=== PATIENT | male | born 1960 | race Caucasian/White ===

== ENCOUNTER 2019-06-25 15:25 | Emergency (ER) | payer SELFPAY ==
[~2019-06-25] VITALS: Ht 165.1 cm; Wt 98.0 kg
[2019-06-25 15:33] VITALS: Ht 165.1 cm; Wt 98.0 kg
[2019-06-25 17:36] LABS: BASOPHIL % 0.5 % (0-2); PLATELET COUNT 159 x10^3mcL (130-400); RED CELL DISTRIBUTION WIDTH 13.1 % (11.5-14.5)
[2019-06-25 17:40] LABS: CALCIUM 8.7 mg/dL (8.5-10.1); CREATININE SERUM 1.7 mg/dL (0.7-1.3); POTASSIUM SERUM 3.6 mmol/L (3.5-5.1)
[2019-06-25 17:45] LABS: BILIRUBIN TOTAL 0.6 mg/dL (0.20-1.00); TOTAL PROTEIN, SERUM 7.3 g/dL (6.4-8.2)
[2019-06-25 17:49] LABS: ALBUMIN 3.3 g/dL (3.4-5.0)
[2019-06-25 21:18] VITALS: BP 143/94
== END 2019-06-25 21:18 | disposition home or self-care (01) ==
LOC: ED 15:25
PROVIDERS: Student in an Organized Health Care Education/Training Program
DX: J45.909 Unspecified asthma, uncomplicated (principal); R79.89 Other specified abnormal findings of blood chemistry; I10 Essential (primary) hypertension
CPT/HCPCS: 36415; 83880